=== PATIENT | female | born 1940 ===

== ENCOUNTER 2017-04-13 05:45 | Day surgery (SDC) | payer OTHER ==
[~2017-04-13 05:45] MED LIST: ASA81 MG PO; CENTRUM SILVER1 EAC2 PO; DILTIAZEM 24HR120 MG PO; HYDROCHLOROTH12.5 M1 PO; LEVO-T50 MCG PO; METFORMIN HCL500 MG PO; ZOCOR20 MG PO
[2017-04-13] MEDS ORDERED: ULTRACET PO (12:52)
[2017-04-13] MEDS ORDERED: MACROBID 100 M100 MG PO (12:53)
== END 2017-04-13 14:00 | disposition home or self-care (01) ==
LOC: CIR.AMB 05:45
DX: N81.11 Cystocele, midline (principal)